=== PATIENT | female | born 1975 | race Caucasian/White ===

== ENCOUNTER 2021-12-13 09:41 | Emergency (ER) | payer OTHER, SELFPAY ==
[2021-12-13 10:00] VITALS: BP 118/62; PULSE 61; RESP 18; TEMP 36.8; O2SAT 100
--- NOTE | 2021-12-13 11:04 | ED.GENADULT ---
HPI - General Adult General Chief complaint: Skin/Abscess/Foreign Body Stated complaint: Rash Source: patient Mode of arrival: ambulatory Limitations: no limitations History of Present Illness HPI narrative: Patient presents for evaluation of painful rash to the left anterior chest wall. On Wednesday of this week she developed some itching in that area. She then noticed an erythematous rash. In the past 24 hrs she has visualized vesicles in that area. She states her pain level is 2/10 and is described as pins and needles . She had chickenpox in childhood. No recent sick contacts to her knowledge. No new lotions, soaps, detergents or topical products. She has not tried any therapies to assist with her symptoms. Related Data Home Medications Medication Instructions Recorded Confirmed escitalopram oxalate 10 mg tablet 10 mg PO DAILY 12/13/21 12/13/21 Allergies Allergy/AdvReac Type Severity Reaction Status Date / Time No Known Allergies Allergy Unverified 12/13/21 10:30 Review of Systems Review of Systems: CONSTITUTIONAL: Denies fever, chills, or sweats. EYES: Denies visual changes, redness, or discharge. ENT: Denies rhinorrhea, congestion, sore throat, or otalgia. CARDIOVASCULAR: Denies chest pain, palpitations, or edema. RESPIRATORY: Denies cough or dyspnea. GASTROINTESTINAL: Denies abdominal pain, nausea, vomiting, or diarrhea. GENITOURINARY: Denies dysuria or hematuria. SKIN: Reports painful rash to left anterior chest wall MUSCULOSKELETAL: Denies back pain, joint pain, or myalgia. NEUROLOGIC: Reports pins and needles in area of left anterior chest wall. Denies headache, dizziness, or weakness. PSYCHIATRIC: Denies anxiety or depression. [facility] Past Medical History Medical History No pertinent past medical history Surgical History Surgical History No pertinent past surgical history Family History Family History Mother Family history non-contributory Social History Social History Smoking status: Never smoker Alcohol intake: current Substance use: never Living arrangements: with family Gender identity (if verbalized by the patient): Female Sexual Orientation (if Verbalized by the Patient): Straight or Heterosexual Spiritual care concerns: No Exam Narrative: GENERAL: Well-appearing, well-nourished, and in no acute distress. HEAD: Normocephalic, atraumatic. EYES: PERRLA and EOMI. ENT: Nares clear, no rhinorrhea or epistaxis. Mucous membranes moist. Oropharynx without tonsillar hypertrophy exudate or other lesions. Bilateral TMs pearly figueroa nonbulging NECK: Supple. No adenopathy or masses. No carotid bruits or JVD CHEST: Clear to auscultation. No respiratory distress. No wheezes rales or rhonchi HEART: Regular rate and rhythm. No murmur heard. Normal peripheral pulses. ABDOMEN: Soft, nontender, nondistended, normal active bowel sounds. EXTREMITIES: Normal range of motion. No edema. SKIN: There are areas of patchy erythema and vesicles noted to left anterior chest wall and left upper back. Symptoms do not cross the midline NEURO: No focal deficits. Alert and oriented x3. PSYCH: Normal mood and affect. Course Course Emergency Course: This is a 46-year-old female who presented for evaluation of vesicular rash to the left anterior chest wall and back. This is a classic presentation of herpes zoster. Will tx with valtrex and hydrocodone for pain. She will keep vesicles covered. She should follow-up outpatient for further evaluation and treatment and go to the ER for worsening symptoms. Patient is in agreement with plan of care. Level of Care: Express Care Visit Vital Signs Vital signs: Vital Signs Temperature 36.8 C 12/13/21 10:00 Pulse R
== END 2021-12-13 11:04 | disposition home or self-care (01) ==
PROVIDERS: Emergency Provider Nurse Practitioner; PCP Internal Medicine
DX: B02.9 Zoster without complications (principal)
CPT/HCPCS: 99203; G0463